=== PATIENT | female | born 1995 | race Caucasian/White ===

== ENCOUNTER 2020-03-25 17:57 | Emergency (ER) | payer SELFPAY ==
--- NOTE | 2020-03-25 19:24 | EDM.PDOC ---
ED HPI GENERAL MEDICAL PROBLEM - General Chief Complaint: DIRECTOR OF AGRONOMY Problem Stated Complaint: CRAMPING (11WEEK ) Time Seen by Provider: 03/25/20 19:08 Source of Information: Reports: Patient, RN Notes Reviewed History Limitations: Reports: No Limitations - History of Present Illness INITIAL COMMENTS - FREE TEXT/NARRATIVE: Patient is a 24-year-old female who presents to the ED for the evaluation of her cramping in . Patient notes she is 11 weeks . She is a G5, , with 2 spontaneous abortions. Her DIRECTOR OF AGRONOMY is Dr. Mayers. Patient states that prior visits with Dr. Mayers went well, but she has not had any imaging for this specific . Patient states that she has not had any vaginal bleeding, but she has experienced low abdomen cramping since around 1 to 1:30 PM today. She did not take any sort of pain medications for this. She states that she is not having any dysuria, urinary frequency or urgency. She states that she had a bowel movement yesterday, and usually has a bowel movement every few days, she does not think that she could be constipated at this time. She states that she did have a sharp pain that radiated into her back as well. She denies any fevers or chills, cough/shortness of breath, nausea/vomiting/diarrhea. Patient does note that yesterday, while in [place] she was at a water fall, and slipped on a rock, and ended up landing on her butt, but states she is not having any pain that she thinks would be due to this. 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 ED EXAM - Physical Exam Exam: See Below Exam Limited By: No Limitations General Appearance: Alert, WD/WN, No Apparent Distress Respiratory/Chest: No Respiratory Distress, Lungs Clear, Normal Breath Sounds, No Accessory Muscle Use, Chest Non-Tender Cardiovascular: Normal Peripheral Pulses, Regular Rate, Rhythm, No Murmur GI/Abdominal Exam: Normal Bowel Sounds, Soft, Non-Tender, No Distention, No Mass Heart Tones: Not [place] Movement: Not Appreciated Neurological: Alert, Oriented, Normal Cognition, No Motor/Sensory Deficits Psychiatric: Normal Affect, Normal Mood Skin Exam: Warm, Dry, Intact, Normal Color, No Rash Course - Vital Signs Last Recorded V/S: Last Vital Signs Temp 97.7 F 03/25/20 18:17 Pulse 79 03/25/20 18:17 Resp 18 03/25/20 18:17 BP 106/72 03/25/20 18:17 Pulse Ox 98 03/25/20 18:17 - Orders/Labs/Meds Labs: Laboratory Tests 03/25/20 Range/Units 20:25 Urine Color Yellow (Yellow) Urine Appearance Clear (Clear) Urine pH 6.5 (5.0-8.0) Ur Specific [place] > or = 1.030 (1.005-1.030) Urine Protein Negative (Negative) Urine Glucose (UA) Negative (Negative) Urine Ketones Negative (Negative) Urine Occult Blood Negative (Negative) Urine Nitrite Negative (Negative) Urine Bilirubin Negative (Negative) Urine Urobilinogen 0.2 (0.2-1.0) Ur Leukocyte Esterase Negative (Negative) Urine RBC 0-5 (0-5) /hpf Urine WBC 0-5 (0-5) /hpf Ur Squamous Epith Cells 5-10 H (0-5) /hpf Urine Bacteria Few (FEW) /hpf Urine Mucus Moderate H (FEW) /hpf - Re-Assessments/Exams Free Text/Narrative Re-Assessment/Exam: 03/25/20 19:25 Patient is roughly 11 weeks . I do not believe that hCG would be very helpful at today's visit. She has not had prior imaging, so she will have a transvaginal ultrasound, and she will also get a UA, to rule out possible UTI. 03/25/20 20:55 The patient's ultrasound was performed, and demonstrates a single intrauterine gestation, at 11 weeks 3 days, with a heart rate of 171 bpm. There is a minimal subchorionic hemorrhage. I was made aware by nursing staff that the patient left AMA, as she states her kids were getting out of hand at home. Urinalysis is negative for any infection. Departure - Departure Time of Disposition: 20:54 Disposition: Against Medical Advice 07 Clinical Impression: Abdominal cramping affecting - Discharge Information Referrals: Diana Mayers MD [Primary Care Provider] - Forms: ED Department Discharge Sepsis Event Note (ED) - Evaluation Sepsis Screening Result: No Definite Risk - Focused Exam Vital Signs: Vital Signs Temp Pulse Resp BP Pulse Ox 03/25/20 18:17 97.7 F 79 18 106/72 98
--- NOTE | 2020-03-25 20:27 | US ---
First trimester obstetrical ultrasound: Multiple real-time images were obtained transabdominally. Comparison: No previous obstetrical imaging for current . Dates: LMP: LMP given as 01/08/20, EVD 10/14/20, gestational age 11 weeks 0 days Current ultrasound: NORIS 10/11/20, gestational age 11 weeks 3 days Single intrauterine gestation is seen. Amniotic fluid volume is normal. Small embryo is identified. Minimal subchorionic hemorrhage is appreciated. There is a hypoechoic area within the anterior uterus which is felt compatible with a fibroid measuring 4.5 x 2.7 x 3.8 cm. Maternal ovaries appear within normal limits. Measurements: [place]-rump length: 4.57 cm - 11 weeks 3 days Heart rate: 171 BPM Impression: 1. Single intrauterine gestation. Dates as noted above. 2. Minimal subchorionic hemorrhage. 3. Fibroid as described above. Diagnostic code #2 Study was dictated in MDT
== END 2020-03-25 20:37 | disposition left against medical advice (07) ==
LOC: JD.ED 17:57
DX: O26.891 Other specified pregnancy related conditions, first trimester (principal); R10.30 Lower abdominal pain, unspecified; Z88.4 Allergy status to anesthetic agent; Z3A.11 11 weeks gestation of pregnancy
CPT/HCPCS: 76801; 76801-26; 81001; 99282; 99284-25

== ENCOUNTER 2020-10-01 21:28 | Inpatient (IN) | payer OTHER ==
[2020-10-01] MEDS ORDERED: Oxytocin/Lactated Ringers 10 UNIT/1,000 ML BAG IV SCH ×2 (23:45)
[2020-10-01] MEDS ORDERED: Lidocaine 1% 50 ML MDV INJECT ONE (23:55)
[2020-10-01] MEDS ORDERED: Acetaminophen 325 MG Tab PO PRN (23:55)
[2020-10-01] MEDS ORDERED: Ondansetron 4 MG/2 ML SDV IVPUSH PRN (23:55)
[2020-10-01] MEDS ORDERED: Calcium Carbonate 500 MG Tab.Chew PO PRN (23:55)
[2020-10-01] MEDS ORDERED: Sodium Chloride 0.9% 10 ML Syringe FLUSH PRN (23:55)
[2020-10-01] MEDS ORDERED: Nalbuphine 10 MG/1 ML Vial IVPUSH PRN (23:55)
[2020-10-02] MEDS ORDERED: Bupivacaine 0.25% 10 ML SDV ONE
[2020-10-02] MEDS ORDERED: Lidocaine 1.5% with EPINEPHrine 1:200,000 5 ML Amp ONE
[2020-10-02] MEDS: Lactated Ringers 1,000 ML IV SCH ×3 (00:08→01:32)
[2020-10-02] MEDS ORDERED: diphenhydrAMINE 50 MG/ML SDV IVPUSH PRN (00:39)
[2020-10-02] MEDS ORDERED: ePHEDrine 50 MG/ML SDV IVPUSH PRN (00:39)
--- NOTE | 2020-10-02 01:10 | PCM.PREANE ---
Preanesthetic Assessment - Procedure Proposed Procedure: Continuous labor epidural - Anesthesia/Transfusion/Family Hx Anesthesia History: Prior Anesthesia Without Reaction Transfusion History: No Prior Transfusion(s) - Review of Systems General: No Symptoms Pulmonary: No Symptoms Cardiovascular: No Symptoms Gastrointestinal: No Symptoms Neurological: No Symptoms Other: Reports: None - Physical Assessment Vital Signs: Last Vital Signs Temp 97.4 F 10/01/20 21:37 Pulse 86 10/01/20 21:37 Resp 16 10/01/20 21:37 BP 126/68 10/01/20 21:37 Pulse Ox 98 10/01/20 21:37 Height: 1.55 m Weight: 84.912 kg ASA Class: 2 Mental Status: Alert & Oriented x3 Airway Class: Mallampati = 1 Dentition: Reports: Normal Dentition, Broken Tooth/Teeth (lower left molars) Thyro-Mental Finger Breadths: 3 Mouth Opening Finger Breadths: 3 ROM/Head Extension: Full Lungs: Clear to Auscultation, Normal Respiratory Effort Cardiovascular: Regular Rate, Regular Rhythm - Lab Values: Laboratory Last Values WBC 11.55 K/mm3 (3.98-10.04) H 10/02/20 00:07 RBC 3.56 M/mm3 (3.98-5.22) L 10/02/20 00:07 Hgb 11.5 gm/dl (11.2-15.7) D 10/02/20 00:07 Hct 35.2 % (34.1-44.9) 10/02/20 00:07 MCV 98.9 fl (79.4-94.8) H D 10/02/20 00:07 MCH 32.3 pg (25.6-32.2) H 10/02/20 00:07 MCHC 32.7 g/dl (32.2-35.5) 10/02/20 00:07 RDW Std Deviation 43.6 fL (36.4-46.3) 10/02/20 00:07 Plt Count 174 K/mm3 (182-369) L 10/02/20 00:07 MPV 11.7 fl (9.4-12.3) 10/02/20 00:07 Neut % (Auto) 77.3 % (34.0-71.1) H 10/02/20 00:07 Lymph % (Auto) 14.6 % (19.3-51.7) L 10/02/20 00:07 [place] % (Auto) 7.5 % (4.7-12.5) 10/02/20 00:07 Eos % (Auto) 0.3 (0.7-5.8) L 10/02/20 00:07 Baso % (Auto) 0.1 % (0.1-1.2) 10/02/20 00:07 Neut # (Auto) 8.92 K/mm3 (1.56-6.13) H 10/02/20 00:07 Lymph # (Auto) 1.69 K/mm3 (1.18-3.74) 10/02/20 00:07 [place] # (Auto) 0.87 K/mm3 (0.24-0.36) H 10/02/20 00:07 Eos # (Auto) 0.04 K/mm3 (0.04-0.36) 10/02/20 00:07 Baso # (Auto) 0.01 K/mm3 (0.01-0.08) 10/02/20 00:07 - Allergies Allergies/Adverse Reactions: Allergies Allergy/AdvReac Type Severity Reaction Status Date / Time procaine [From Novocain] AdvReac Nausea and Verified 10/01/20 22:06 Vomiting sertraline [From Zoloft] AdvReac Other Verified 10/01/20 22:06 - Acknowledgements Anesthesia Type Planned: Epidural Pt an Appropriate Candidate for the Planned Anesthesia: Yes Alternatives and Risks of Anesthesia Discussed w Pt/Guardian: Yes Pt/Guardian Understands and Agrees with Anesthesia Plan: Yes PreAnesthesia Questionnaire - Past Health History Medical/Surgical History: Denies Medical/Surgical History [employer] History: Reports: , Spontaneous Hematologic History: Reports: Anemia, Iron Deficiency - HOME MEDS Home Medications: Home Meds Pnv No.95/Ferrous Fum/Folic AC [ Tablet] 1 each PO DAILY 06/16/18 [History] - CURRENT (IN HOUSE) MEDS Current Meds: Current Medications Acetaminophen (Tylenol) 650 mg PO Q4H PRN PRN Reason: Pain (Mild 1-3) and fever Calcium Carbonate/Glycine (Tums) 1,000 mg PO Q2H PRN PRN Reason: Indigestion Diphenhydramine HCl (Benadryl) 25 mg IVPUSH Q6H PRN PRN Reason: pruritis Ephedrine Sulfate (Ephedrine Sulfate) 5 mg IVPUSH ASDIRECTED PRN PRN Reason: Hypotension Fentanyl (Sublimaze) 100 mcg EPIDUR Q3H PRN PRN Reason: Pain Fentanyl/Bupivacaine HCl (Fentanyl/Bupivacaine/Ns 2 Mcg-0.125% 100 Ml) 100 ml EPIDUR ASDIRECTED PRN PRN Reason: Pain Lactated Ringer's (Ringers, Lactated) 1,000 mls @ 100 mls/hr IV ASDIRECTED YAZ Last Admin: 10/02/20 00:52 Dose: 999 mls/hr Documented by: Oxytocin/Lactated Ringer's (Pitocin In Lr 10 Units/1,000 Ml) 10 unit in 1,000 mls @ 12 mls/hr IV TITRATE YAZ; Protocol Oxytocin/Lactated Ringer's (Pitocin In Lr 10 Units/1,000 Ml) 10 unit in 1,000 mls @ 500 mls/hr IV .CONTINUOUS YAZ Nalbuphine HCl (Nubain) 10 mg IVPUSH Q2H PRN PRN Reason: Pain Ondansetron HCl (Zofran) 4 mg IVPUSH Q4H PRN PRN Reason: Nausea/Vomiting Sodium Chloride (Saline Flush) 10 ml FLUSH ASDIRECTED PRN PRN Reason: Keep Vein Open Discontinued Medications Lidocaine HCl (Xylocaine 1%) 20 ml INJECT ONETIME ONE Stop: 10/01/20 23:56
[2020-10-02] MEDS: fentaNYL 100 MCG/2 ML SDV EPIDUR PRN ×2 (01:15→07:32)
[2020-10-02] MEDS: Bupivacaine/fentaNYL/NS 100 ML Bag EPIDUR PRN ×2 (01:15→09:03)
--- NOTE | 2020-10-02 07:04 | PCM.LDHP ---
L&D History of Present Illness - General Date of Service: 10/02/20 Admit Problem/Dx: Patient Status Order with Admit Dx/Problem 10/01/20 21:37 Patient Status [ADT] Routine 10/01/20 23:55 Patient Status [ADT] Routine Admission Diagnosis/Problem Admission Diagnosis/Problem Active labor Source of Information: Patient History Limitations: Reports: No Limitations - History of Present Illness Introduction:: Patient is a 25 y/o at 38 2/7 wks who presented late last night with irregular contractions. 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 Shortly after receiving her epidural had SROM. Contractions then spaced out. Has been augmented with pitocin since. Doing well. 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 : 5 Para: 2 LMP (Approximate): Psychiatric History: Reports: Anxiety - Infectious Disease History Infectious Disease History: Reports: Novel Coronavirus - Past Surgical History HEENT Surgical History: Reports: Oral Surgery Female Surgical History: Reports: LEEP Social & Family History - Family History Family Medical History: No Pertinent Family History - Tobacco Use Tobacco Use Status *Q: Former Tobacco User Years of Tobacco use: 5 Packs/Tins Daily: 0.5 Used Tobacco, but Quit: Yes Month/Year Tobacco Last Used: 03/2017 - Caffeine Use Caffeine Use: Reports: Soda - Alcohol Use Alcohol Use History: No - Recreational Drug Use Recreational Drug Use: No H&P Review of Systems - Review of Systems: Review Of Systems: See Below General: Reports: No Symptoms Pulmonary: Reports: No Symptoms Cardiovascular: Reports: No Symptoms Gastrointestinal: Reports: No Symptoms Genitourinary: Reports: No Symptoms Musculoskeletal: Reports: No Symptoms Skin: Reports: No Symptoms Neurological: Reports: No Symptoms L&D Exam - Exam Exam: See Below - Vital Signs Vital Signs: Last Vital Signs Temp 36.3 C 10/01/20 21:37 Pulse 86 10/01/20 21:37 Resp 16 10/01/20 21:37 BP 126/68 10/01/20 21:37 Pulse Ox 98 10/01/20 21:37 Weight: 84.912 kg - OB Specific Contraction Intensity: Mild to Moderate Movement: Active Heart Tones: Present Heart Tones per Min: 140 Heart Rate (FHR) Variability: Moderate (6-25 bmp) Presentation: Vertex - Mccracken Score Mccracken Score Cervix Position: Midposition Mccracken Score Consistency: Soft Mccracken Score Effacement: 51-70% Mccracken Score Dilation: > 5 cm Mccracken Score Infant's Station: -1 ,0 Mccracken Score Total: 10 - Exam General: Alert, Oriented, Cooperative Lungs: Clear to Auscultation, Normal Respiratory Effort Cardiovascular: Regular Rate, Regular Rhythm GI/Abdominal Exam: Soft, Non-Tender Genitourinary: Normal external exam Extremities: Normal Inspection Skin: Warm, Dry, Intact - Patient Data Lab Results Last 24 hrs: Laboratory Results - last 24 hr 10/02/20 10/02/20 Range/Units 00:07 00:07 WBC 11.55 H (3.98-10.04) K/mm3 RBC 3.56 L (3.98-5.22) M/mm3 Hgb 11.5 D (11.2-15.7) gm/dl Hct 35.2 (34.1-44.9) % MCV 98.9 H D (79.4-94.8) fl MCH 32.3 H (25.6-32.2) pg MCHC 32.7 (32.2-35.5) g/dl RDW Std Deviation 43.6 (36.4-46.3) fL Plt Count 174 L (182-369) K/mm3 MPV 11.7 (9.4-12.3) fl Neut % (Auto) 77.3 H (34.0-71.1) % Lymph % (Auto) 14.6 L (19.3-51.7) % [place] % (Auto) 7.5 (4.7-12.5) % Eos % (Auto) 0.3 L (0.7-5.8) Baso % (Auto) 0.1 (0.1-1.2) % Neut # (Auto) 8.92 H (1.56-6.13) K/mm3 Lymph # (Auto) 1.69 (1.18-3.74) K/mm3 [place] # (Auto) 0.87 H (0.24-0.36) K/mm3 Eos # (Auto) 0.04 (0.04-0.36) K/mm3 Baso # (Auto) 0.01 (0.01-0.08) K/mm3 Blood Type O POSITIVE Gel Antibody Screen Negative Result Diagrams: 10/02/20 00:07 - Problem List (1) 38 weeks gestation of SNOMED Code(s): 62004534 ICD Code: Z3A.38 - 38 WEEKS GESTATION OF Status: Acute Current Visit: No (2) Normal labor SNOMED Code(s): 35097258 ICD Code: O80 - ENCOUNTER FOR FULL-TERM UNCOMPLICATED DELIVERY; Z37.9 - OUTCOME OF DELIVERY, UNSPECIFIED Status: Acute Current Visit: No Problem List Initiated/Reviewed/Updated: Yes Orders Last 24hrs: Active Orders 24 hr Category Date Time Status Patient Status [ADT] Routine ADT 10/01/20 23:55 Active Activity as Tolerated [RC] PFP Care 10/01/20 23:55 Active Communication Order [RC] ASDIRECTED Care 10/01/20 23:55 Active Notify Provider [RC] ASDIRECTED Care 10/02/20 00:39 Active Notify Provider [RC] PFP Care 10/01/20 23:55 Active Notify Provider [RC] PRN Care 10/01/20 23:55 Active Peripheral IV Care [RC] Q2HR Care 10/01/20 23:55 Active Pump Management, Intrathecal [RC] ASDIRECTED Care 10/01/20 23:56 Active Urinary Catheter Assessment [RC] ASDIRECTED Care 10/01/20 23:55 Active Regular Diet [DIET] Diet 10/01/20 Dinner Active CORONAVIRUS COVID-19 JEROME [MOLEC] Stat Lab 10/01/20 23:57 Ordered PATIENT RETYPE [BBK] Routine Lab 10/02/20 04:19 Ordered RAPID PLASMA REAGIN,RPR [CHEM] Stat Lab 10/01/20 23:55 Received Acetaminophen [TylenoL] Med 10/01/20 23:55 Active 650 mg PO Q4H PRN Bupivacaine/fentaNYL/NS [fentaNYL/Bupivacaine/NS 2 MCG- Med 10/02/20 00:39 Active 0.125% 100 ML] 100 ml EPIDUR ASDIRECTED PRN Calcium Carbonate [Tums] Med 10/01/20 23:55 Active 1,000 mg PO Q2H PRN Lactated Ringers [Ringers, Lactated] 1,000 ml Med 10/01/20 23:45 Active IV ASDIRECTED Nalbuphine [Nubain] Med 10/01/20 23:55 Active 10 mg IVPUSH Q2H PRN Ondansetron [Zofran] Med 10/01/20 23:55 Active 4 mg IVPUSH Q4H PRN Oxytocin/Lactated Ringers [Pitocin in LR 10 Units/1,000 Med 10/01/20 23:45 Active ML] 10 unit in 1,000 ml IV .CONTINUOUS Oxytocin/Lactated Ringers [Pitocin in LR 10 Units/1,000 Med 10/01/20 23:45 Active ML] 10 unit in 1,000 ml IV TITRATE Sodium Chloride 0.9% [Saline Flush] Med 10/01/20 23:55 Active 10 ml FLUSH ASDIRECTED PRN diphenhydrAMINE [Benadryl] Med 10/02/20 00:39 Active 25 mg IVPUSH Q6H PRN ePHEDrine [ePHEDrine sulfate] Med 10/02/20 00:39 Active 5 mg IVPUSH ASDIRECTED PRN fentaNYL [Sublimaze] Med 10/02/20 00:39 Active 100 mcg EPIDUR Q3H PRN Electronic Heart Tones Ext w TOCO [WOMSER] Oth 10/01/20 23:55 Ordered Routine Electronic Heart Tones Internal [WOMSER] Per Unit Oth 10/01/20 23:55 Ordered Routine Peripheral IV Insertion Adult [OM.PC] Routine Oth 10/01/20 23:55 Ordered Resuscitation Status Routine Resus Stat 10/01/20 21:37 Ordered Medication Orders Acetaminophen (Tylenol) 650 mg PO Q4H PRN PRN Reason: Pain (Mild 1-3) and fever Calcium Carbonate/Glycine (Tums) 1,000 mg PO Q2H PRN PRN Reason: Indigestion Diphenhydramine HCl (Benadryl) 25 mg IVPUSH Q6H PRN PRN Reason: pruritis Ephedrine Sulfate (Ephedrine Sulfate) 5 mg IVPUSH ASDIRECTED PRN PRN Reason: Hypotension Fentanyl (Sublimaze) 100 mcg EPIDUR Q3H PRN PRN Reason: Pain Last Admin: 10/02/20 01:15 Dose: 100 mcg Documented by: HANNAH Fentanyl/Bupivacaine HCl (Fentanyl/Bupivacaine/Ns 2 Mcg-0.125% 100 Ml) 100 ml EPIDUR ASDIRECTED PRN PRN Reason: Pain Last Admin: 10/02/20 01:15 Dose: 100 ml Documented by: HANNAH Lactated Ringer's (Ringers, Lactated) 1,000 mls @ 100 mls/hr IV ASDIRECTED YAZ Last Admin: 10/02/20 01:32 Dose: 999 mls/hr Documented by: Infusion: 10/02/20 01:32 Dose: 500 mls/hr Documented by: Admin: 10/02/20 00:52 Dose: 999 mls/hr Documented by: Infusion: 10/02/20 00:52 Dose: 999 mls/hr Documented by: Admin: 10/02/20 00:08 Dose: 999 mls/hr Documented by: HANNAH Oxytocin/Lactated Ringer's (Pitocin In Lr 10 Units/1,000 Ml) 10 unit in 1,000 mls @ 12 mls/hr IV TITRATE YAZ; Protocol Last Titration: 10/02/20 06:45 Dose: 14 munits/min, 84 mls/hr Documented by: Titration: 10/02/20 06:17 Dose: 12 munits/min, 72 mls/hr Documented by: Titration: 10/02/20 05:50 Dose: 10 munits/min, 60 mls/hr Documented by: Titration: 10/02/20 05:19 Dose: 8 munits/min, 48 mls/hr Documented by: Titration: 10/02/20 04:49 Dose: 6 munits/min, 36 mls/hr Documented by: Titration: 10/02/20 04:21 Dose: 4 munits/min, 24 mls/hr Documented by: Admin: 10/02/20 03:53 Dose: 2 munits/min, 12 mls/hr Documented by: HANNAH Oxytocin/Lactated Ringer's (Pitocin In Lr 10 Units/1,000 Ml) 10 unit in 1,000 mls @ 500 mls/hr IV .CONTINUOUS YAZ Nalbuphine HCl (Nubain) 10 mg IVPUSH Q2H PRN PRN Reason: Pain Ondansetron HCl (Zofran) 4 mg IVPUSH Q4H PRN PRN Reason: Nausea/Vomiting Sodium Chloride (Saline Flush) 10 ml FLUSH ASDIRECTED PRN PRN Reason: Keep Vein Open Assessment/Plan Comment:: * labs already done * GBS negative * Pitocin for augmentation, continue per protocol * Epidural in place * Anticipate
[2020-10-02] MEDS ORDERED: Misoprostol 200 MCG Tab ONE (12:22)
[2020-10-02] MEDS ORDERED: Methylergonovine 0.2 MG/1 ML Amp ONE (12:23)
[2020-10-02] MEDS ORDERED: Misoprostol 200 MCG Tab PO STA (12:32)
[2020-10-02] MEDS ORDERED: Methylergonovine 0.2 MG/1 ML Amp IM STA (12:32)
--- NOTE | 2020-10-02 12:36 | PCM.DEL ---
L & D Note - General Info Date of Service: 10/02/20 - Delivery Note Labor: Augmented by Oxytocin Delivery Outcome: Livebirth Delivery Method: Spontaneous Vaginal Delivery-Single Delivery Mode: Spontaneous Presentation: Right Occiput Anterior (CYNTHIA) Nuchal Cord: None Anesthesia Type: Epidural Amniotic Fluid Description: Clear Episiotomy Type: None Laceration: None Placenta: Intact, Spontaneous Cord: 3 Vessels Estimated Blood Loss: 400 Resuscitation Needed: Yes : Bulb Syringe, Stimulated, Warmed, [place] Used, Warmer Used Delivery Comments (Free Text/Narrative):: Patient found to be complete and began pushing. With maternal pushing effort head delivered from an CYNTHIA presentation. No nuchal cord present. With gentle downward traction the shoulders and body delivered. placed on maternal abdomen. Cord clamped and cut. Cord blood obtained. Placenta allowed time to separate and expelled intact. [place] bleeding noted at this time. This was controlled with 600 mcg of buccal cytotec and 0.2 mg of IM methergine. Inspection of perineum showed no lacerations - General Info Date of Service: 10/02/20 - Patient Data Vitals - Most Recent: Last Vital Signs Temp 36.3 C 10/01/20 21:37 Pulse 86 10/01/20 21:37 Resp 16 10/01/20 21:37 BP 126/68 10/01/20 21:37 Pulse Ox 98 10/01/20 21:37 Weight - Most Recent: 84.912 kg I&O - Last 24 Hours: Intake & Output 10/01/20 10/02/20 10/02/20 22:59 06:59 14:59 Intake Total 2000 Output Total 1000 Balance 1999 -1000 - Problem List & Annotations (1) 38 weeks gestation of SNOMED Code(s): 27941137 Code(s): Z3A.38 - 38 WEEKS GESTATION OF Status: Acute Current Visit: No (2) Normal labor SNOMED Code(s): 67011718 Code(s): O80 - ENCOUNTER FOR FULL-TERM UNCOMPLICATED DELIVERY; Z37.9 - OUTCOME OF DELIVERY, UNSPECIFIED Status: Acute Current Visit: No (3) Vaginal delivery SNOMED Code(s): 645702692 Code(s): O80 - ENCOUNTER FOR FULL-TERM UNCOMPLICATED DELIVERY Status: Acute Current Visit: No - Problem List Review Problem List Initiated/Reviewed/Updated: Yes - My Orders Last 24 Hours: My Active Orders 10/01/20 Dinner Regular Diet [DIET] 10/01/20 21:37 Resuscitation Status Routine 10/01/20 23:45 Lactated Ringers [Ringers, Lactated] 1,000 ml IV ASDIRECTED Oxytocin/Lactated Ringers [Pitocin in LR 10 Units/1,000 ML] 10 unit in 1,000 ml IV .CONTINUOUS Oxytocin/Lactated Ringers [Pitocin in LR 10 Units/1,000 ML] 10 unit in 1,000 ml IV TITRATE 10/01/20 23:55 Patient Status [ADT] Routine Activity as Tolerated [RC] PFP Communication Order [RC] ASDIRECTED Notify Provider [RC] PFP Notify Provider [RC] PRN Peripheral IV Care [RC] Q2HR Urinary Catheter Assessment [RC] ASDIRECTED RAPID PLASMA REAGIN,RPR [CHEM] Stat Acetaminophen [TylenoL] 650 mg PO Q4H PRN Calcium Carbonate [Tums] 1,000 mg PO Q2H PRN Nalbuphine [Nubain] 10 mg IVPUSH Q2H PRN Ondansetron [Zofran] 4 mg IVPUSH Q4H PRN Sodium Chloride 0.9% [Saline Flush] 10 ml FLUSH ASDIRECTED PRN Electronic Heart Tones Ext w TOCO [WOMSER] Routine Electronic Heart Tones Internal [WOMSER] Per Unit Routine Peripheral IV Insertion Adult [OM.PC] Routine 10/01/20 23:56 Pump Management, Intrathecal [RC] ASDIRECTED 10/02/20 04:19 PATIENT RETYPE [BBK] Routine 10/02/20 12:32 Methylergonovine [Methergine] 0.2 mg IM NOW STA miSOPROStoL [Cytotec] 600 mcg PO NOW STA 10/02/20 12:33 Patient Status Manage Transfer [TRANSFER] Routine - Assessment Assessment:: PPD#0 - Plan Plan:: * Routine cares * Breast feeding * Discharge home in 1-2 days
[2020-10-02] MEDS ORDERED: Acetaminophen 325 MG Tab PO PRN (12:56)
[2020-10-02] MEDS ORDERED: Witch Hazel Medicated Pads 40/Jar TOP PRN (12:56)
[2020-10-02] MEDS ORDERED: Docusate Sodium 100 MG Cap PO PRN (12:56)
[2020-10-02] MEDS ORDERED: Benzocaine/Menthol 20%-0.5% Spray 56 GM Canister TOP PRN (12:56)
[2020-10-02] MEDS: Ibuprofen 600 MG Tab PO PRN ×2 (13:59→20:31)
--- NOTE | 2020-10-03 07:40 | PCM48HPAN ---
Post Anesthesia Note - EVALUATION WITHIN 48HRS OF ANESTHETIC Vital Signs in Normal Range: Yes Patient Participated in Evaluation: Yes Respiratory Function Stable: Yes Airway Patent: Yes Cardiovascular Function Stable: Yes Hydration Status Stable: Yes Pain Control Satisfactory: Yes Nausea and Vomiting Control Satisfactory: Yes Mental Status Recovered: Yes Vital Signs: Last Vital Signs Temp 36.4 C 10/03/20 03:55 Pulse 76 10/03/20 03:55 Resp 14 10/03/20 03:55 BP 106/60 10/03/20 03:55 Pulse Ox 95 10/03/20 03:55 - COMMENTS/OBSERVATIONS Free Text/Narrative:: NO ANESTHESIA COMPLICATIONS NOTED
[2020-10-03] MEDS: Ibuprofen 600 MG Tab PO PRN (07:41)
--- NOTE | 2020-10-03 08:27 | PCM.PNPP ---
- General Info Date of Service: 10/03/20 Functional Status: Reports: Pain Controlled, Tolerating Diet, Ambulating, Urinating - Review of Systems General: Reports: No Symptoms Pulmonary: Reports: No Symptoms Cardiovascular: Reports: No Symptoms Gastrointestinal: Reports: No Symptoms Genitourinary: Reports: No Symptoms Musculoskeletal: Reports: No Symptoms Neurological: Reports: No Symptoms - General Info Date of Service: 10/03/20 - Patient Data Vital Signs - Most Recent: Last Vital Signs Temp 36.4 C 10/03/20 03:55 Pulse 76 10/03/20 03:55 Resp 14 10/03/20 03:55 BP 106/60 10/03/20 03:55 Pulse Ox 95 10/03/20 03:55 Weight - Most Recent: 84.912 kg I&O - Last 24 Hours: Intake & Output 10/02/20 10/03/20 10/03/20 22:59 06:59 14:59 Intake Total 750 Balance 750 Lab Results - Last 24 Hours: Laboratory Results - last 24 hr 10/02/20 Range/Units 00:07 RPR Non-reactive (NONREACTIVE) Med Orders - Current: Current Medications Acetaminophen (Tylenol) 650 mg PO Q4H PRN PRN Reason: mild pain or fever Benzocaine/Menthol (Dermoplast Pain Relief [place]) 0 gm TOP ASDIRECTED PRN PRN Reason: Perineal Comfort Measure Last Admin: 10/02/20 13:59 Dose: 1 applic Documented by: Docusate Sodium (Colace) 100 mg PO BID PRN PRN Reason: Constipation Ibuprofen (Motrin) 600 mg PO Q6H PRN PRN Reason: Mild pain or fever Last Admin: 10/03/20 07:41 Dose: 600 mg Documented by: Rajinder Nair ([facility]) 1 pad TOP ASDIRECTED PRN PRN Reason: Perineal Comfort Measure Last Admin: 10/02/20 13:59 Dose: 1 applic Documented by: Discontinued Medications Acetaminophen (Tylenol) 650 mg PO Q4H PRN PRN Reason: Pain (Mild 1-3) and fever Bupivacaine HCl (Sensorcaine-Mpf 0.25%) 10 ml .ROUTE .STK-MED ONE Stop: 10/02/20 00:01 Calcium Carbonate/Glycine (Tums) 1,000 mg PO Q2H PRN PRN Reason: Indigestion Diphenhydramine HCl (Benadryl) 25 mg IVPUSH Q6H PRN PRN Reason: pruritis Ephedrine Sulfate (Ephedrine Sulfate) 5 mg IVPUSH ASDIRECTED PRN PRN Reason: Hypotension Fentanyl (Sublimaze) 100 mcg EPIDUR Q3H PRN PRN Reason: Pain Last Admin: 10/02/20 07:32 Dose: 100 mcg Documented by: Fentanyl/Bupivacaine HCl (Fentanyl/Bupivacaine/Ns 2 Mcg-0.125% 100 Ml) 100 ml EPIDUR ASDIRECTED PRN PRN Reason: Pain Last Admin: 10/02/20 09:03 Dose: 100 ml Documented by: Lactated Ringer's (Ringers, Lactated) 1,000 mls @ 100 mls/hr IV ASDIRECTED YAZ Last Admin: 10/02/20 01:32 Dose: 999 mls/hr Documented by: Oxytocin/Lactated Ringer's (Pitocin In Lr 10 Units/1,000 Ml) 10 unit in 1,000 mls @ 12 mls/hr IV TITRATE YAZ; Protocol Last Titration: 10/02/20 12:17 Dose: 83.33 munits/min, 500 mls/hr Documented by: Oxytocin/Lactated Ringer's (Pitocin In Lr 10 Units/1,000 Ml) 10 unit in 1,000 mls @ 500 mls/hr IV .CONTINUOUS YAZ Last Admin: 10/02/20 13:04 Dose: 500 mls/hr Documented by: Lidocaine HCl (Xylocaine 1%) 20 ml INJECT ONETIME ONE Stop: 10/01/20 23:56 Last Admin: 10/02/20 14:37 Dose: Not Given Documented by: Lidocaine/Epinephrine (Xylocaine-Mpf 1.5% W/Epinephrine 1:200,000) 5 ml .ROUTE .STK-MED ONE Stop: 10/02/20 00:01 Methylergonovine Maleate (Methergine) Confirm Administered Dose 0.2 mg .ROUTE .STK-MED ONE Stop: 10/02/20 12:24 Last Admin: 10/02/20 12:46 Dose: Not Given Documented by: Methylergonovine Maleate (Methergine) 0.2 mg IM NOW STA Stop: 10/02/20 12:33 Last Admin: 10/02/20 12:25 Dose: 0.2 mg Documented by: Misoprostol (Cytotec) Confirm Administered Dose 600 mcg .ROUTE .STK-MED ONE Stop: 10/02/20 12:23 Last Admin: 10/02/20 12:46 Dose: Not Given Documented by: Misoprostol (Cytotec) 600 mcg PO NOW STA Stop: 10/02/20 12:33 Last Admin: 10/02/20 12:20 Dose: 600 mcg Documented by: Nalbuphine HCl (Nubain) 10 mg IVPUSH Q2H PRN PRN Reason: Pain Ondansetron HCl (Zofran) 4 mg IVPUSH Q4H PRN PRN Reason: Nausea/Vomiting Sodium Chloride (Saline Flush) 10 ml FLUSH ASDIRECTED PRN PRN Reason: Keep Vein Open - Infant Interaction Infant Disposition, : in Room with Family Infant Interaction: Holding Infant Feeding: Attempted ; Nursed Fair/Poor Support Person: - Recovery Exam Fundal Tone: Firm Fundal Level: 1 Fingerbreadths Below Umbilicus Fundal Placement: Midline Lochia Amount: Small Lochia Color: Rubra/Red Perineum Description: Intact, Minimal Bruising/Swelling Episiotomy/Laceration: None Bladder Status: Voiding Urinary Elimination: Voided - Exam General: Alert, Oriented, Cooperative GI/Abdominal Exam: Soft, Non-Tender Extremities: Normal Inspection Skin: Warm, Dry, Intact - Problem List & Annotations (1) 38 weeks gestation of SNOMED Code(s): 79530733 Code(s): Z3A.38 - 38 WEEKS GESTATION OF Status: Acute Current Visit: No (2) Normal labor SNOMED Code(s): 17100050 Code(s): O80 - ENCOUNTER FOR FULL-TERM UNCOMPLICATED DELIVERY; Z37.9 - OUTCOME OF DELIVERY, UNSPECIFIED Status: Acute Current Visit: No (3) Vaginal delivery SNOMED Code(s): 043292892 Code(s): O80 - ENCOUNTER FOR FULL-TERM UNCOMPLICATED DELIVERY Status: Acute Current Visit: No - Problem List Review Problem List Initiated/Reviewed/Updated: Yes - My Orders Last 24 Hours: My Active Orders 10/02/20 Lunch Regular Diet [DIET] 10/02/20 12:56 Acetaminophen [TylenoL] 650 mg PO Q4H PRN Benzocaine/Menthol [Dermoplast Pain Relief [place]] See Dose Instructions TOP ASDIRECTED PRN Docusate Sodium [Colace] 100 mg PO BID PRN Ibuprofen [Motrin] 600 mg PO Q6H PRN witch Tevin [Tucks] 1 pad TOP ASDIRECTED PRN Heat Therapy [OM.PC] PRN 10/02/20 12:56 Activity as Tolerated [RC] PER UNIT ROUTINE Vital Signs [RC] 03,,, Assess Lochia [WOMSER] Per Unit Routine Assess Uterine Involution [WOMSER] Per Unit Routine Breast Pump [WOMSER] Per Unit Routine Ice Therapy [OM.PC] Per Unit Routine Perineal Care [OM.PC] Per Unit Routine Peripheral IV Discontinue [OM.PC] Routine Sitz Bath [OM.PC] Per Unit Routine 10/03/20 08:26 Ready for Discharge [RC] PER UNIT ROUTINE 10/03/20 12:56 Heat Therapy [OM.PC] PRN - Assessment Assessment:: PPD#1 - Plan Plan:: * Routine cares * Breast feeding * Discharge home today
--- NOTE | 2020-10-03 08:32 | PCM.DCSUM1 ---
Discharge Summary - Discharge Data Discharge Date: 10/03/20 Discharge Disposition: Home, Self-Care 01 Condition: Good - Referral to Home Health Primary Care Physician: Diana Mayers MD - Discharge Diagnosis/Problem(s) (1) 38 weeks gestation of SNOMED Code(s): 47076915 ICD Code: Z3A.38 - 38 WEEKS GESTATION OF Status: Acute Current Visit: No (2) Normal labor SNOMED Code(s): 38721248 ICD Code: O80 - ENCOUNTER FOR FULL-TERM UNCOMPLICATED DELIVERY; Z37.9 - OUTCOME OF DELIVERY, UNSPECIFIED Status: Acute Current Visit: No (3) Vaginal delivery SNOMED Code(s): 040816479 ICD Code: O80 - ENCOUNTER FOR FULL-TERM UNCOMPLICATED DELIVERY Status: Acute Current Visit: No - Patient Summary/Data Complications: None Consults: None Recommended Follow-up Testing/Procedures: Follow up in 3 weeks for check Hospital Course: 25 y/o woman at 38 2/7 wks who presented for labor/SROM. Progressed we ll. Underwent a notable for 400 cc blood loss. See delivery note. did well and was discharged home on PPD#1 - Patient Instructions Diet: Regular Diet as Tolerated Activity: As Tolerated Activity, Other: Pelvic rest for 6 weeks Driving: May Drive Today Showering/Bathing: May Shower Showering/Bathing, Other: May Bathe Notify Provider of: Fever, Increased Pain, Swelling and Redness, Drainage, Nausea and/or Vomiting - Discharge Plan *PRESCRIPTION DRUG MONITORING PROGRAM REVIEWED*: No *COPY OF PRESCRIPTION DRUG MONITORING REPORT IN PATIENT RAMANA: No Home Medications: Home Meds Pnv No.95/Ferrous Fum/Folic AC [ Tablet] 1 each PO DAILY 06/16/18 [History] Docusate Sodium [Colace] 100 mg PO BID PRN cap 10/03/20 [Rx] Ibuprofen [Motrin] 600 mg PO Q6H PRN tablet 10/03/20 [Rx] Referrals: Diana Mayers MD [Primary Care Provider] - (3 weeks for check ) - Discharge Summary/Plan Comment DC Time >30 min.: No - Patient Data Vitals - Most Recent: Last Vital Signs Temp 36.4 C 10/03/20 03:55 Pulse 76 10/03/20 03:55 Resp 14 10/03/20 03:55 BP 106/60 10/03/20 03:55 Pulse Ox 95 10/03/20 03:55 Weight - Most Recent: 84.912 kg I&O - Last 24 hours: Intake & Output 10/02/20 10/03/20 10/03/20 22:59 06:59 14:59 Intake Total 750 Balance 750 Lab Results - Last 24 hrs: Laboratory Results - last 24 hr 10/02/20 Range/Units 00:07 RPR Non-reactive (NONREACTIVE)
== END 2020-10-03 13:15 | disposition home or self-care (01) | DRG 807 ==
LOC: JD.OBCHECK 21:28 → JD.OB 21:31 → JD.OBCHECK 10-02 00:41 → OBSVTOIN 10-02 12:16 → JD.OB 10-02 12:17
PROVIDERS: ADMIT Obstetrics & Gynecology; ATTEND Obstetrics & Gynecology
PROC: 10E0XZZ Delivery of Products of Conception, External Approach (ICD-10-PCS; principal; 2020-10-02)
PROC: 3E0R3BZ Introduction of Anesthetic Agent into Spinal Canal, Percutaneous Approach (ICD-10-PCS; 2020-10-02)
PROC: 00HU33Z Insertion of Infusion Device into Spinal Canal, Percutaneous Approach (ICD-10-PCS; 2020-10-02)
DX: O99.344 Other mental disorders complicating childbirth (principal); Z37.0 Single live birth; F41.9 Anxiety disorder, unspecified; Z79.899 Other long term (current) drug therapy; Z88.8 Allergy status to other drugs, medicaments and biological substances; Z87.891 Personal history of nicotine dependence; Z3A.38 38 weeks gestation of pregnancy
CPT/HCPCS: 01967; 36415; 51702; 59025; 59409; 85025; 86592; 86850; 86900; 86901; A9270-GY; J2210; J2590; J3010; J3490; J7120

== ENCOUNTER 2024-02-28 06:58 | Day surgery (SDC) | payer BC, OTHER ==
[~2024-02-28 06:58] MED LIST: Sodium Chloride 0.9% 10 ML Syringe FLUSH PRN; Sodium Chloride 0.9% 10 ML Syringe FLUSH SCH
[2024-02-28] MEDS: Lactated Ringers 1,000 ML IV SCH (07:00)
[2024-02-28] MEDS ORDERED: dexmedeTOMIDine HCl 200 MCG/2 ML SDV ONE (07:12)
[2024-02-28] MEDS ORDERED: Ondansetron 4 MG/2 ML SDV ONE (07:12)
[2024-02-28] MEDS ORDERED: Metoclopramide 10 MG/2 ML SDV ONE (07:12)
[2024-02-28] MEDS ORDERED: Dexamethasone 4 MG/ML 5 ML MDV ONE (07:12)
[2024-02-28] MEDS ORDERED: Rocuronium 50 MG/5 ML Vial ONE (07:12)
[2024-02-28] MEDS ORDERED: Ketorolac 30 MG/ML SDV ONE (07:12)
[2024-02-28] MEDS ORDERED: fentaNYL 100 MCG/2 ML SDV ONE (07:19)
[2024-02-28] MEDS ORDERED: Bupivacaine 0.25% 10 ML SDV ONE (07:19)
[2024-02-28] MEDS ORDERED: Propofol 200 MG/20 ML SDV ONE (07:20)
[2024-02-28] MEDS ORDERED: Midazolam 1 MG/ML 2 ML SDV ONE (07:20)
[2024-02-28] MEDS ORDERED: Lidocaine 2% 5 ML SDV ONE (07:21)
[2024-02-28 07:27] LABS: BASOPHILS PERCENT AUTO 0.5 % (0.0-1.0); EOSINOPHILS ABSOLUTE AUTO 0.1 K/mm3 (0.0-0.4); EOSINOPHILS PERCENT AUTO 1.3 % (0.0-6.0); HEMATOCRIT 34.7 % (37.0-47.0); HEMOGLOBIN 11.4 gm/dl (12.0-16.0); IMMATURE GRAN ABSOLUTE AUTO 0.01 K/mm3 (0.00-0.05); IMMATURE GRAN PERCENT AUTO 0.2 % (0.0-0.4); LYMPHOCYTES ABSOLUTE AUTO 2.1 K/mm3 (1.0-4.8); LYMPHOCYTES PERCENT AUTO 34.6 % (24.0-44.0); MEAN CORPUSCULAR HEMOGLOBIN 28.6 pg (28.0-32.0); MEAN CORPUSCULAR HGB CONC 32.9 g/dl (32.0-36.0); MEAN CORPUSCULAR VOLUME 87.2 fl (83.0-99.0); MEAN PLATELET VOLUME 11.1 fl (9.4-12.3); MONOCYTES ABSOLUTE AUTO 0.5 K/mm3 (0.0-0.8); MONOCYTES PERCENT AUTO 8.8 % (0.0-8.0); NEUTROPHILS ABSOLUTE AUTO 3.3 K/mm3 (1.8-7.7); NEUTROPHILS PERCENT AUTO 54.6 % (41.0-71.0); PLATELET COUNT,PLT 211 K/mm3 (150-400); RED BLOOD CELL COUNT 3.98 M/mm3 (4.10-5.30); WHITE BLOOD CELL COUNT,WBC 6.02 K/mm3 (3.9-11.3)
[2024-02-28] MEDS ORDERED: ceFAZolin 2 GM Vial ONE (07:41)
[2024-02-28 07:45] LABS: ANION GAP 13.9 (5-15); BUN/CREATININE RATIO 13.6 (14-18); CALCIUM 8.7 mg/dL (8.5-10.1); CREATININE 1.1 mg/dL (0.55-1.02); EST CRCL DRUG DOSING (CG) 62.7 mL/min; POTASSIUM,K 3.9 mEq/L (3.5-5.1)
[2024-02-28] MEDS: Bupivacaine 0.25% 10 ML SDV ONE (08:08)
[2024-02-28] MEDS: EPINEPHrine 1 MG/ML SDV ONE (08:08)
[2024-02-28] MEDS: Bupivacaine 0.5% 30 ML SDV ONE (08:08)
[2024-02-28] MEDS ORDERED: Neostigmine Methylsulfate 10 MG/10 ML MDV ONE (08:25)
[2024-02-28] MEDS ORDERED: Lactated Ringers 1,000 ML ONE (08:35)
[2024-02-28] MEDS ORDERED: Ondansetron 4 MG/2 ML SDV IVPUSH PRN (08:44)
[2024-02-28] MEDS ORDERED: HYDROmorphone 0.5 MG/0.5 ML Syringe IVPUSH PRN (08:44)
[2024-02-28] MEDS: fentaNYL 100 MCG/2 ML SDV IVPUSH PRN (09:38)
[2024-02-28] MEDS: Acetaminophen/oxyCODONE 325-5 MG Tab PO PRN (11:06)
== END 2024-02-28 12:14 | disposition home or self-care (01) ==
LOC: JD.SDS 06:58
PROVIDERS: ATTEND Obstetrics & Gynecology
DX: N80.03 Adenomyosis of the uterus (principal); N93.9 Abnormal uterine and vaginal bleeding, unspecified; N83.8 Other noninflammatory disorders of ovary, fallopian tube and broad ligament; F32.A Depression, unspecified; Z87.891 Personal history of nicotine dependence; Z88.1 Allergy status to other antibiotic agents
CPT/HCPCS: 36415; 58552; 80048; 81025; 85025; 86850; 86900; 86901; A9270; J0171; J0665; J0690; J1100; J1885; J2250; J2405; J2704; J2710; J2765; J3010; J3490; J7120; 00944

== ENCOUNTER 2024-02-28 16:03 | Inpatient (IN) | payer BC ==
[~2024-02-28 16:03] MED LIST changes: +Dexamethasone 4 MG/ML 5 ML MDV ONE; +Lidocaine 1% 5 ML VIAL ONE; +Metoclopramide 10 MG/2 ML SDV ONE; +Propofol 200 MG/20 ML SDV ONE; +Rocuronium 50 MG/5 ML Vial ONE; -Sodium Chloride 0.9% 10 ML Syringe FLUSH PRN; -Sodium Chloride 0.9% 10 ML Syringe FLUSH SCH; +Succinylcholine 200 MG/10 ML MDV ONE; +fentaNYL 100 MCG/2 ML SDV ONE
[2024-02-28] MEDS: ceFAZolin 2 GM in Sodium Chloride 0.9% 50 ML IV ONE (16:25)
[2024-02-28] MEDS: Sodium Chloride 0.9% 10 ML Syringe FLUSH PRN (16:25)
[2024-02-28 16:27] LABS: BASOPHILS PERCENT AUTO 0.1 % (0.0-1.0); HEMATOCRIT 30.2 % (37.0-47.0); IMMATURE GRAN ABSOLUTE AUTO 0.04 K/mm3 (0.00-0.05); IMMATURE GRAN PERCENT AUTO 0.4 % (0.0-0.4); LYMPHOCYTES ABSOLUTE AUTO 0.7 K/mm3 (1.0-4.8); LYMPHOCYTES PERCENT AUTO 6.6 % (24.0-44.0); MEAN CORPUSCULAR HEMOGLOBIN 28.8 pg (28.0-32.0); MEAN CORPUSCULAR HGB CONC 33.1 g/dl (32.0-36.0); MEAN PLATELET VOLUME 11.2 fl (9.4-12.3); MONOCYTES ABSOLUTE AUTO 0.3 K/mm3 (0.0-0.8); MONOCYTES PERCENT AUTO 2.7 % (0.0-8.0); NEUTROPHILS ABSOLUTE AUTO 9.2 K/mm3 (1.8-7.7); NEUTROPHILS PERCENT AUTO 90.2 % (41.0-71.0); PLATELET COUNT,PLT 206 K/mm3 (150-400); RED BLOOD CELL COUNT 3.47 M/mm3 (4.10-5.30); WHITE BLOOD CELL COUNT,WBC 10.22 K/mm3 (3.9-11.3)
[2024-02-28] MEDS: Lactated Ringers 1,000 ML IV SCH (16:49)
[2024-02-28] MEDS: Citric Acid/Sodium Citrate Solution 30 ML Cup PO ONE (16:50)
[2024-02-28] MEDS ORDERED: Lactated Ringers 1,000 ML ONE (16:51)
[2024-02-28] MEDS ORDERED: fentaNYL 100 MCG/2 ML SDV ONE (16:54)
[2024-02-28] MEDS ORDERED: dexmedeTOMIDine HCl 200 MCG/2 ML SDV ONE (16:55)
[2024-02-28 17:03] LABS: ANION GAP 14.7 (5-15); BUN/CREATININE RATIO 11.3 (14-18); CALCIUM 8.4 mg/dL (8.5-10.1); CREATININE 0.8 mg/dL (0.55-1.02); POTASSIUM,K 3.7 mEq/L (3.5-5.1)
[2024-02-28] MEDS: Bupivacaine 0.5% 30 ML SDV ONE (17:17)
[2024-02-28] MEDS ORDERED: Neostigmine Methylsulfate 10 MG/10 ML MDV ONE (17:22)
[2024-02-28] MEDS ORDERED: Ondansetron 4 MG/2 ML SDV IVPUSH PRN ×2 (17:33→19:01)
[2024-02-28] MEDS ORDERED: Tranexamic Acid 1,000 MG/10 ML Vial ONE (17:50)
[2024-02-28] MEDS ORDERED: Ondansetron 4 MG/2 ML SDV ONE (18:15)
[2024-02-28] MEDS ORDERED: Acetaminophen/oxyCODONE 325-5 MG Tab PO PRN (19:01)
[2024-02-28] MEDS: fentaNYL 100 MCG/2 ML SDV IVPUSH PRN (19:27)
[2024-02-28] MEDS: HYDROmorphone 0.5 MG/0.5 ML Syringe IVPUSH PRN (19:40)
[2024-02-28] MEDS ORDERED: Morphine 2 MG/ML SYRINGE IVPUSH PRN (20:43)
[2024-02-28] MEDS: Acetaminophen/oxyCODONE 325-5 MG Tab PO PRN (20:59)
[2024-02-28] MEDS: Docusate Sodium 100 MG Cap PO SCH (20:59)
[2024-02-29] MEDS: Ketorolac 15 MG/ML SDV IVPUSH SCH (04:18)
[2024-02-29 06:37] LABS: HEMATOCRIT 25.5 % (37.0-47.0); MEAN CORPUSCULAR HEMOGLOBIN 28.8 pg (28.0-32.0); MEAN CORPUSCULAR HGB CONC 32.9 g/dl (32.0-36.0); MEAN CORPUSCULAR VOLUME 87.3 fl (83.0-99.0); MEAN PLATELET VOLUME 10.9 fl (9.4-12.3); PLATELET COUNT,PLT 185 K/mm3 (150-400); RED BLOOD CELL COUNT 2.92 M/mm3 (4.10-5.30); WHITE BLOOD CELL COUNT,WBC 12.15 K/mm3 (3.9-11.3)
[2024-02-29 06:38] LABS: HEMOGLOBIN 8.4 gm/dl (12.0-16.0)
[2024-02-29] MEDS ORDERED: Benzocaine/Cetylpyridinium/Menthol Lozenge MUCMEM PRN (07:17)
[2024-02-29 16:05] LABS: HEMATOCRIT 25.9 % (37.0-47.0); HEMOGLOBIN 8.5 gm/dl (12.0-16.0); MEAN CORPUSCULAR HGB CONC 32.8 g/dl (32.0-36.0); MEAN CORPUSCULAR VOLUME 88.4 fl (83.0-99.0); PLATELET COUNT,PLT 182 K/mm3 (150-400); RED BLOOD CELL COUNT 2.93 M/mm3 (4.10-5.30); WHITE BLOOD CELL COUNT,WBC 9.14 K/mm3 (3.9-11.3)
== END 2024-02-29 17:45 | disposition home or self-care (01) | DRG 810 ==
LOC: JD.ED 16:03 → UNDOADMIN 16:10 → JD.OB 16:10 → JD.SDS 16:37 → JD.OB 19:09
PROVIDERS: ADMIT Obstetrics & Gynecology; ATTEND Obstetrics & Gynecology
PROC: 0UJH0ZZ Inspection of Vagina and Cul-de-sac, Open Approach (ICD-10-PCS; 2024-02-28)
PROC: 0UJH4ZZ Inspection of Vagina and Cul-de-sac, Percutaneous Endoscopic Approach (ICD-10-PCS; principal; 2024-02-28 16:15)
DX: N99.820 Postprocedural hemorrhage of a genitourinary system organ or structure following a genitourinary system procedure (principal); D62 Acute posthemorrhagic anemia; F41.9 Anxiety disorder, unspecified; F32.A Depression, unspecified; Z88.8 Allergy status to other drugs, medicaments and biological substances; Z79.899 Other long term (current) drug therapy; Z86.16 Personal history of COVID-19; Z98.890 Other specified postprocedural states; Z90.710 Acquired absence of both cervix and uterus
CPT/HCPCS: 36415; 80048; 85025; 85027; 86850; 86900; 86901; 86922; 94761; A9270-GY; J0330; J0665; J0690; J1100; J1170; J1885; J2405; J2704; J2710; J2765; J3010; J3490; J7120

== ENCOUNTER 2024-03-10 20:47 | Emergency (ER) | payer BC | END 2024-03-10 23:21 | disposition home or self-care (01) | LOC: JD.ED 20:47 | DX: N99.842 Postprocedural seroma of a genitourinary system organ or structure following a genitourinary system procedure (principal); Z88.8 Allergy status to other drugs, medicaments and biological substances; Z79.899 Other long term (current) drug therapy; Z86.16 Personal history of COVID-19; Z90.710 Acquired absence of both cervix and uterus | CPT/HCPCS: 76705; 76705-26; 99284 ==